=== PATIENT | male | born 1970 | race Caucasian/White ===

== ENCOUNTER 2018-12-28 12:04 | Emergency (ER) | payer SELFPAY, OTHER ==
[2018-12-28] MEDS: LIDOCAINE 1% (MDV) 20 ML INJ SC (14:45)
== END 2018-12-28 15:08 | disposition home or self-care (01) ==
LOC: FTE 15:08
DX: N50.89 Other specified disorders of the male genital organs (principal)
CPT/HCPCS: 76870; 99284-25